=== PATIENT | male | born 1960 | race Caucasian/White ===

== ENCOUNTER 2016-06-21 11:56 | Emergency (ER) | payer OTHER, BC ==
[2016-06-21 12:40] LABS: BASO # 0.1 K/mm3 (0.0-0.2); BASO % 0.9 % (0.0-1.0); EOS # 0.1 K/mm3 (0.0-0.50); EOS % 0.9 % (0.0-3.0); LARGE UNSTAINED CELL # 0.2 K/mm3 (0.0-0.4); LYMPH # 1.6 K/mm3 (1.5-4.5); LYMPH % 20.8 % (24.0-44.0); MEAN CORPUSCULAR HGB CONC 34.9 g/dl (32.0-36.5); MEAN CORPUSCULAR VOLUME 85.9 fl (80.0-96.0); MONO # 0.5 K/mm3 (0.0-0.8); MONO % 5.9 % (0.0-5.0); NEUTROPHILS # 5.4 K/mm3 (1.8-7.7); NEUTROPHILS % 69.5 % (36.0-66.0); PLATELET COUNT, AUTOMATED 237 k/mm3 (150-450); RED CELL DISTRIBUTION WIDTH 12.2 % (11.5-14.5); WHITE BLOOD COUNT 7.8 K/mm3 (4.0-10.0)
[2016-06-21 12:55] LABS: ANION GAP 8 MEQ/L (8-16); BLOOD UREA NITROGEN 14 MG/DL (7-18); CALCIUM LEVEL 9.2 MG/DL (8.5-10.1); CARBON DIOXIDE LEVEL 28 MEQ/L (21-32); CHLORIDE LEVEL 103 MEQ/L (98-107); CREATININE FOR GFR 1.05 MG/DL (0.70-1.30); GLOMERULAR FILTRATION RATE > 60.0 (>56); GLUCOSE, FASTING 94 MG/DL (70-105); SODIUM LEVEL 139 MEQ/L (136-145)
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
--- NOTE | 2016-06-21 14:49 | EDDOCDS ---
Physician Documentation [facility] Name: Pb Denton Age: 56 yrs Sex: Male : 1960 Arrival Date: 06/21/2016 Time: 11:56 Bed 5 Private MD: NO PRIMARY PHYSICIAN, . Disposition: 06/21/16 14:32 Discharged to Home/Self Care. Impression: Headache. - Condition is Stable. - Medication Reconciliation, Local Pharmacy Hours form. - Follow up: [facility]; When: Call to arrange an appointment; Reason: Recheck today's complaints. Follow up: Orthopaedics, [facility]; When: As previously arranged; Reason: Further diagnostic work-up, Recheck today's complaints. Follow up: Monster George MD; When: Call to arrange an appointment; Reason: Recheck today's complaints. - Problem is new. - Symptoms are unchanged. - Notes: You were evaluated in the emergency department for a headache. An x-ray of your head and chest did not reveal any acute abnormalities. Your laboratory results were negative. Take Tylenol and Ibuprofen as needed for your headache. Schedule an appointment withthe E clinicat your soonest convenience to follow-up on today's complaints. Also schedule an appointment with Dr. George (a neurologist) to further discuss today's complaints. Continue care with Dr. Singh (an orthopedist). Historical: - Allergies: no known allergies; - Home Meds: 1. metformin 850 mg oral tab 1 tab daily 2. Lisinopril Unknown Oral 3. Atenolol Unknown Oral Unknown once daily 4. omeprazole 40 mg Oral cpDR 1 cap once daily 5. Hydrochlorothiazide Unknown Oral Unknown once daily 6. aspirin 81 mg Oral tab 1 tab once daily 7. Simvastatin Unknown Oral Unknown once daily - PMHx: Hypercholesterolemia; Hypertension; GERD; Diabetes - NIDDM: controlled; - PSHx: Appendectomy; Tonsillectomy; Adenoidectomy; left knee surgery; - Social history: Smoking status: Chewing Tobacco No barriers to communication noted, The patient speaks fluent Yi, Speaks appropriately for age. - Family history: Not pertinent. - : The pt / caregiver states he / she is not on anticoagulants. Home medication list is obtained from the patient. - Exposure Risk Screening:: None identified. Vital Signs: 06/21 11:58 BP 156 / 87; Pulse 61; Resp 20; Temp 98.1(O); Pulse Ox 96% on R/A; Weight 136.08 kg / elp 300.01 lbs (R); Height 6 ft. 0 in. (182.88 cm) (R); Pain 4/10; 14:36 BP 146 / 83 (auto/); dsf 14:38 Pulse 56 MON; Resp 20; Temp 98.4(O); Pulse Ox 95% on R/A; Pain 4/10; dsf 11:58 Body Mass Index 40.69 (136.08 kg, 182.88 cm) elp Carlos Coma Score: 12:06 Eye Response: spontaneous(4). Verbal Response: oriented(5). Motor Response: obeys dsf commands(6). Total: 15. MDM: 12:05 IV Saline Lock ordered. br1 12:05 CT Head Without Contrast Ordered. EDMS 12:05 CT Chest Without Contrast Ordered. EDMS 12:06 CBC with Diff Ordered. EDMS 12:07 BMP Ordered. EDMS 13:31 BMP Reviewed. jo4 13:32 CBC with Diff Reviewed. jo4 13:32 CT Head Without Contrast Reviewed. jo4 13:33 CT Chest Without Contrast Reviewed. jo4 13:58 Financial registration complete. 14:49 [facility] Payment Agreement was scanned into [employer] and attached to record. Signatures: Dispatcher [employer] Jarad Ward, Gildardo Reg Silviano Mitchell MD MD br1 Yue Omalley,JOCELYNE RN dsf Bridgette Miles DO DO jo4 The chart was reviewed and I authenticate all verbal orders and agree with the evaluation and treatment provided.Attachments: 14:49 [facility] Payment Agreement lg LEVAR
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
--- NOTE | 2016-06-23 15:50 | EDDOCDS ---
Physician Documentation [facility] Name: Pb Denton Age: 56 yrs Sex: Male : 1960 Arrival Date: 06/21/2016 Time: 11:56 Bed 5 Private MD: NO PRIMARY PHYSICIAN, . Disposition: 06/21/16 14:32 Discharged to Home/Self Care. Impression: Headache. - Condition is Stable. - Medication Reconciliation, Local Pharmacy Hours form. - Follow up: [facility]; When: Call to arrange an appointment; Reason: Recheck today's complaints. Follow up: Orthopaedics, [facility]; When: As previously arranged; Reason: Further diagnostic work-up, Recheck today's complaints. Follow up: Monster George MD; When: Call to arrange an appointment; Reason: Recheck today's complaints. - Problem is new. - Symptoms are unchanged. - Notes: You were evaluated in the emergency department for a headache. An x-ray of your head and chest did not reveal any acute abnormalities. Your laboratory results were negative. Take Tylenol and Ibuprofen as needed for your headache. Schedule an appointment withthe E clinicat your soonest convenience to follow-up on today's complaints. Also schedule an appointment with Dr. George (a neurologist) to further discuss today's complaints. Continue care with Dr. Singh (an orthopedist). Historical: - Allergies: no known allergies; - Home Meds: 1. metformin 850 mg oral tab 1 tab daily 2. Lisinopril Unknown Oral 3. Atenolol Unknown Oral Unknown once daily 4. omeprazole 40 mg Oral cpDR 1 cap once daily 5. Hydrochlorothiazide Unknown Oral Unknown once daily 6. aspirin 81 mg Oral tab 1 tab once daily 7. Simvastatin Unknown Oral Unknown once daily - PMHx: Hypercholesterolemia; Hypertension; GERD; Diabetes - NIDDM: controlled; - PSHx: Appendectomy; Tonsillectomy; Adenoidectomy; left knee surgery; - Social history: Smoking status: Chewing Tobacco No barriers to communication noted, The patient speaks fluent Tajik, Speaks appropriately for age. - Family history: Not pertinent. - : The pt / caregiver states he / she is not on anticoagulants. Home medication list is obtained from the patient. - Exposure Risk Screening:: None identified. Vital Signs: 06/21 11:58 BP 156 / 87; Pulse 61; Resp 20; Temp 98.1(O); Pulse Ox 96% on R/A; Weight 136.08 kg / elp 300.01 lbs (R); Height 6 ft. 0 in. (182.88 cm) (R); Pain 4/10; 14:36 BP 146 / 83 (auto/); dsf 14:38 Pulse 56 MON; Resp 20; Temp 98.4(O); Pulse Ox 95% on R/A; Pain 4/10; dsf 11:58 Body Mass Index 40.69 (136.08 kg, 182.88 cm) elp [place] Coma Score: 12:06 Eye Response: spontaneous(4). Verbal Response: oriented(5). Motor Response: obeys dsf commands(6). Total: 15. MDM: 12:05 IV Saline Lock ordered. br1 12:05 CT Head Without Contrast Ordered. EDMS 12:05 CT Chest Without Contrast Ordered. EDMS 12:06 CBC with Diff Ordered. EDMS 12:07 BMP Ordered. EDMS 13:31 BMP Reviewed. jo4 13:32 CBC with Diff Reviewed. jo4 13:32 CT Head Without Contrast Reviewed. jo4 13:33 CT Chest Without Contrast Reviewed. jo4 13:58 Financial registration complete. lg 14:49 [facility] Payment Agreement was scanned into [employer] and attached to record. lg 16:01 T-Sheet-- Draft Copy was scanned into [employer] and attached to record. klr Signatures: Dispatcher [employer] EDJarad Farmer, Reg Reg Silviano Mitchell MD MD br1 Yue Omalley RN RN dsf Bridgette Miles DO DO jo4 Redder, Kathie klr The chart was reviewed and I authenticate all verbal orders and agree with the evaluation and treatment provided.Attachments: 14:49 [facility] Payment Agreement lg 16:01 T-Sheet-- Draft Copy klr Chart Complete MTDD
--- NOTE | 2016-06-23 15:50 | EDDOCDS ---
Physician Documentation [facility] Name: Pb Denton Age: 56 yrs Sex: Male : 1960 Arrival Date: 06/21/2016 Time: 11:56 Bed 5 Private MD: NO PRIMARY PHYSICIAN, . Disposition: 06/21/16 14:32 Discharged to Home/Self Care. Impression: Headache. - Condition is Stable. - Medication Reconciliation, Local Pharmacy Hours form. - Follow up: [facility]; When: Call to arrange an appointment; Reason: Recheck today's complaints. Follow up: Orthopaedics, [facility]; When: As previously arranged; Reason: Further diagnostic work-up, Recheck today's complaints. Follow up: Monster George MD; When: Call to arrange an appointment; Reason: Recheck today's complaints. - Problem is new. - Symptoms are unchanged. - Notes: You were evaluated in the emergency department for a headache. An x-ray of your head and chest did not reveal any acute abnormalities. Your laboratory results were negative. Take Tylenol and Ibuprofen as needed for your headache. Schedule an appointment withthe E clinicat your soonest convenience to follow-up on today's complaints. Also schedule an appointment with Dr. George (a neurologist) to further discuss today's complaints. Continue care with Dr. Singh (an orthopedist). Historical: - Allergies: no known allergies; - Home Meds: 1. metformin 850 mg oral tab 1 tab daily 2. Lisinopril Unknown Oral 3. Atenolol Unknown Oral Unknown once daily 4. omeprazole 40 mg Oral cpDR 1 cap once daily 5. Hydrochlorothiazide Unknown Oral Unknown once daily 6. aspirin 81 mg Oral tab 1 tab once daily 7. Simvastatin Unknown Oral Unknown once daily - PMHx: Hypercholesterolemia; Hypertension; GERD; Diabetes - NIDDM: controlled; - PSHx: Appendectomy; Tonsillectomy; Adenoidectomy; left knee surgery; - Social history: Smoking status: Chewing Tobacco No barriers to communication noted, The patient speaks fluent Turkish, Speaks appropriately for age. - Family history: Not pertinent. - : The pt / caregiver states he / she is not on anticoagulants. Home medication list is obtained from the patient. - Exposure Risk Screening:: None identified. Vital Signs: 06/21 11:58 BP 156 / 87; Pulse 61; Resp 20; Temp 98.1(O); Pulse Ox 96% on R/A; Weight 136.08 kg / elp 300.01 lbs (R); Height 6 ft. 0 in. (182.88 cm) (R); Pain 4/10; 14:36 BP 146 / 83 (auto/); dsf 14:38 Pulse 56 MON; Resp 20; Temp 98.4(O); Pulse Ox 95% on R/A; Pain 4/10; dsf 11:58 Body Mass Index 40.69 (136.08 kg, 182.88 cm) elp [place] Coma Score: 12:06 Eye Response: spontaneous(4). Verbal Response: oriented(5). Motor Response: obeys dsf commands(6). Total: 15. MDM: 12:05 IV Saline Lock ordered. br1 12:05 CT Head Without Contrast Ordered. EDMS 12:05 CT Chest Without Contrast Ordered. EDMS 12:06 CBC with Diff Ordered. EDMS 12:07 BMP Ordered. EDMS 13:31 BMP Reviewed. jo4 13:32 CBC with Diff Reviewed. jo4 13:32 CT Head Without Contrast Reviewed. jo4 13:33 CT Chest Without Contrast Reviewed. jo4 13:58 Financial registration complete. lg 14:49 [facility] Payment Agreement was scanned into [employer] and attached to record. lg 16:01 T-Sheet-- Draft Copy was scanned into [employer] and attached to record. klr Signatures: Dispatcher [employer] EDJarad Farmer, Reg Reg Silviano Mitchell MD MD br1 Yue Omalley RN RN dsf Bridgette Miles DO DO jo4 Redder, Kathie klr The chart was reviewed and I authenticate all verbal orders and agree with the evaluation and treatment provided.Attachments: 14:49 [facility] Payment Agreement lg 16:01 T-Sheet-- Draft Copy klr Chart Complete MTDD
== END 2016-06-21 14:49 | disposition home or self-care (01) ==
LOC: M ED 11:56
DX: R51 Headache (principal); E78.00 Pure hypercholesterolemia, unspecified; I10 Essential (primary) hypertension; K21.9 Gastro-esophageal reflux disease without esophagitis; E11.9 Type 2 diabetes mellitus without complications; F17.220 Nicotine dependence, chewing tobacco, uncomplicated; Z79.84 Long term (current) use of oral hypoglycemic drugs; Z79.82 Long term (current) use of aspirin; Z79.899 Other long term (current) drug therapy

== ENCOUNTER → 2016-07-01 | Outpatient (CLI) | payer OTHER, BC ==
--- NOTE | 2016-07-01 14:44 | REP ---
Left shoulder MRI: The study is technically difficult because of patient body habitus and inability to use the usual shoulder coil. The study is performed with proton density and T2-weighted dialysis in sagittal, axial and coronal projections. The acromioclavicular joint is unremarkable. The rotator cuff tendons are unremarkable. There is no fluid in the subacromial bursa. There is no evidence of marrow edema. There is slight spurring of the humeral head compatible with osteoarthritis. There is no gross evidence of labral tear or displacement. There is no displacement of the biceps long head tendon. There is a 2.2 cm cyst along the anterior margin of the subscapularis tendon, compatible with ganglion. Impression: 2.2 cm ganglion along the anterior margin of the subscapularis tendon. Otherwise, negative left shoulder MRI. The study is technically difficult as a is performed without the usual shoulder coil because of patient body habitus. Signed by Darrian Gill MD 07/01/2016 02:35 P
== END ==
LOC: M RAD 12:49
PROVIDERS: ATTEND Orthopaedic Surgery
DX: M25.512 Pain in left shoulder (principal); M67.412 Ganglion, left shoulder

== ENCOUNTER → 2016-11-19 | Outpatient (CLI) | payer OTHER, BC | LOC: M WUC 08:51 | PROVIDERS: ATTEND Nurse Practitioner Family | DX: E11.9 Type 2 diabetes mellitus without complications (principal); E78.5 Hyperlipidemia, unspecified; Z12.5 Encounter for screening for malignant neoplasm of prostate ==

== ENCOUNTER → 2016-11-20 | Outpatient (REF) | payer OTHER | LOC: M LAB REF 19:06 | PROVIDERS: ATTEND Nurse Practitioner Family | DX: Z12.5 Encounter for screening for malignant neoplasm of prostate (principal); E78.5 Hyperlipidemia, unspecified; E11.9 Type 2 diabetes mellitus without complications ==

== ENCOUNTER → 2017-01-15 | Outpatient (REF) | payer OTHER ==
[2017-01-18 00:06] LABS: Lyme Disease IgG Ab 18 kDa Ban Present (.); Lyme Disease IgG Ab 23 kDa Ban Absent (.); Lyme Disease IgG Ab 28 kDa Ban Absent (.); Lyme Disease IgG Ab 30 kDa Ban Absent (.); Lyme Disease IgG Ab 39 kDa Ban Present (.); Lyme Disease IgG Ab 41 kDa Ban Present (.); Lyme Disease IgG Ab 45 kDa Ban Present (.); Lyme Disease IgG Ab 58 kDa Ban Present (.); Lyme Disease IgG Ab 66 kDa Ban Absent (.); Lyme Disease IgG Ab 93 kDa Ban Absent (.); Lyme Disease IgG West Blot Int Positive (.); Lyme Disease IgG/IgM Antibodie 1.62 ISR (0.00-0.90); Lyme Disease IgM Ab 23 kDa Ban Present (.); Lyme Disease IgM Ab 39 kDa Ban Absent (.); Lyme Disease IgM Ab 41 kDa Ban Present (.); Lyme Disease IgM West Blot Int Positive (.)
== END ==
LOC: M LAB REF 14:09
PROVIDERS: ATTEND Physician Assistant
DX: L30.9 Dermatitis, unspecified (principal)

== ENCOUNTER → 2017-06-26 | Outpatient (CLI) | payer BC, OTHER | LOC: M WUC 13:36 | DX: R50.9 Fever, unspecified (principal); R05 Cough | CPT/HCPCS: 71046 ==

== ENCOUNTER → 2017-06-26 | Outpatient (REF) | payer BC, OTHER ==
[2017-06-26 19:33] LABS: HEMATOCRIT 41.4 % (42.0-52.0); HEMOGLOBIN 13.7 g/dl (14.0-18.0); MEAN CORPUSCULAR HEMOGLOBIN 29.8 pg (27.0-33.0); MEAN CORPUSCULAR HGB CONC 33.1 g/dl (32.0-36.5); PLATELET COUNT, AUTOMATED 193 10^3/uL (150-450); WHITE BLOOD COUNT 15.9 10^3/uL (4.0-10.0)
[2017-06-26 19:42] LABS: ADD MANUAL DIFFER YES; DIFF SLIDE NUMBER 348; POS COUNT POS FLAG; POSITIVE MORPH POS FLAG
[2017-06-26 20:28] LABS: ATYPICAL LYMPH 1 % (0-5); BANDS 6 % (< 11); BASOPHILS 1 % (0-4); LYMPHOCYTES 4 % (16-52); MONOCYTES 6 % (0-8)
[2017-06-26 20:29] LABS: PLATELET CLUMPS SMALL AMT; PLATELET ESTIMATE NORMAL (NORMAL)
[2017-06-26 21:04] LABS: NEUTROPHILS 82 % (35-75)
== END ==
LOC: M LAB REF 18:20
DX: R05 Cough (principal); R50.9 Fever, unspecified
CPT/HCPCS: 85025

== ENCOUNTER → 2018-08-07 | Outpatient (REF) | payer OTHER ==
[2018-08-07 10:04] LABS: ALT/SGPT 71 U/L (12-78); BILIRUBIN,TOTAL 0.5 MG/DL (0.2-1.0); BLOOD UREA NITROGEN 20 MG/DL (7-18); CALCIUM LEVEL 9.1 MG/DL (8.5-10.1); CARBON DIOXIDE LEVEL 27 MEQ/L (21-32); CHLORIDE LEVEL 103 MEQ/L (98-107); CHOLESTEROL LEVEL 229 MG/DL (<200); CHOLESTEROL RISK RATIO 6.542 (<5); CREATININE FOR GFR 0.97 MG/DL (0.70-1.30); GLOMERULAR FILTRATION RATE > 60.0 (>56); GLUCOSE, FASTING 114 MG/DL (70-100); HDL CHOLESTEROL 35 MG/DL (>40); LDL CHOLESTEROL 117 MG/DL (<100); NON-HDL-C 194 MG/DL; POTASSIUM SERUM 3.9 MEQ/L (3.5-5.1); SODIUM LEVEL 137 MEQ/L (136-145); TOTAL PROTEIN 7.1 GM/DL (6.4-8.2); TRIGLYCERIDES LEVEL 385 MG/DL (<150)
[2018-08-07 10:41] LABS: URIC ACID 6.7 MG/DL (3.5-7.2)
== END ==
LOC: M LAB REF 09:29
PROVIDERS: ATTEND Nurse Practitioner Family
DX: I10 Essential (primary) hypertension (principal); E78.5 Hyperlipidemia, unspecified; M54.5 Low back pain; M10.372 Gout due to renal impairment, left ankle and foot; E11.9 Type 2 diabetes mellitus without complications

== ENCOUNTER → 2019-05-23 | Outpatient (REF) | payer OTHER | LOC: M SFHCADAM 17:08 | PROVIDERS: ATTEND Family Medicine | DX: E78.49 Other hyperlipidemia (principal); R73.03 Prediabetes; K22.70 Barrett's esophagus without dysplasia; G47.33 Obstructive sleep apnea (adult) (pediatric); I11.9 Hypertensive heart disease without heart failure; Z12.5 Encounter for screening for malignant neoplasm of prostate; R53.83 Other fatigue ==

== ENCOUNTER → 2019-05-27 | Outpatient (REF) | payer MEDICARE, OTHER ==
[2019-05-27 11:36] LABS: HEMATOCRIT 48.8 % (42.0-52.0); HEMOGLOBIN 16.1 g/dl (13.5-17.5); MEAN CORPUSCULAR HEMOGLOBIN 29.3 pg (27.0-33.0); MEAN CORPUSCULAR VOLUME 88.7 fl (80.0-96.0); PLATELET COUNT, AUTOMATED 220 10^3/uL (150-450); WHITE BLOOD COUNT 8.7 10^3/uL (4.0-10.0)
[2019-05-27 11:47] LABS: ALBUMIN 3.9 GM/DL (3.2-5.2); ALT/SGPT 64 U/L (12-78); BILIRUBIN,TOTAL 0.7 MG/DL (0.2-1.0); BLOOD UREA NITROGEN 17 MG/DL (7-18); CALCIUM LEVEL 9.3 MG/DL (8.5-10.1); CARBON DIOXIDE LEVEL 27 MEQ/L (21-32); CHLORIDE LEVEL 102 MEQ/L (98-107); CHOLESTEROL LEVEL 219 MG/DL (<200); CHOLESTEROL RISK RATIO 5.615 (<5); CREATININE FOR GFR 1.01 MG/DL (0.70-1.30); FREE T4 0.92 NG/DL (0.76-1.46); GLOMERULAR FILTRATION RATE > 60.0 (>56); GLUCOSE, FASTING 115 MG/DL (70-100); HDL CHOLESTEROL 39 MG/DL (>40); LDL CHOLESTEROL 138 MG/DL (<100); NON-HDL-C 180 MG/DL; POTASSIUM SERUM 3.8 MEQ/L (3.5-5.1); SODIUM LEVEL 139 MEQ/L (136-145); TOTAL PROTEIN 7.3 GM/DL (6.4-8.2); TRIGLYCERIDES LEVEL 210 MG/DL (<150); VITAMIN B12 LEVEL 449 PG/ML
[2019-05-27 11:51] LABS: FOLATE 11.1 NG/ML
[2019-05-27 12:14] LABS: HEMOGLOBIN A1c 6.2 %
== END ==
LOC: M SFHCADAM 10:29
PROVIDERS: ATTEND Family Medicine
DX: R73.03 Prediabetes (principal); Z12.5 Encounter for screening for malignant neoplasm of prostate; I11.9 Hypertensive heart disease without heart failure; K22.70 Barrett's esophagus without dysplasia; G47.33 Obstructive sleep apnea (adult) (pediatric)
CPT/HCPCS: 36415; 80053; 80061; 82607; 82746; 83036; 84439; 84443; 85027; G0103

== ENCOUNTER → 2019-05-30 | Outpatient (CLI) | payer MEDICARE, OTHER ==
--- NOTE | 2019-05-30 13:49 | REP ---
CHEST, TWO VIEWS: Two views of the chest are performed and compared to prior studies, most recently 06/26/2017. There is no acute infiltrate. There is minor bibasilar fibroatelectatic change. Heart is normal in size. Mediastinal silhouette is unremarkable and unchanged. There are degenerative changes of the spine. IMPRESSION: No evidence of acute pulmonary disease. Electronically Signed by Darrian Pack MD 05/30/2019 05:44 P
== END ==
LOC: M WUC 09:41
PROVIDERS: ATTEND Nurse Practitioner Family
DX: R06.02 Shortness of breath (principal)

== ENCOUNTER → 2019-06-25 | Outpatient (CLI) | payer MEDICARE, OTHER ==
--- NOTE | 2019-06-25 12:26 | REP ---
Lumbar spine three views: Vertebral body heights and alignment are normal. There is degenerative disc disease at every lumbar level. There is no spondylolysis or spondylolisthesis. The pedicles, facets and sacroiliac articulations are unremarkable. Impression: Multilevel degenerative disc disease. Otherwise, negative lumbar spine. Electronically Signed by Darrian Gill MD 06/25/2019 12:17 P
== END ==
LOC: M ADAMS 11:26
PROVIDERS: ATTEND Family Medicine
DX: M51.36 Other intervertebral disc degeneration, lumbar region (principal); M54.5 Low back pain
CPT/HCPCS: 72100; G0463

== ENCOUNTER → 2019-07-05 | Outpatient (CLI) | payer MEDICARE, BC, OTHER ==
--- NOTE | 2019-07-05 09:08 | REPVR ---
PROCEDURE INFORMATION: Exam: MR Lumbar Spine Without Contrast. Exam date and time: 07/05/2019 7:44 AM Age: 59 years old Clinical indication: Low back pain; Additional info: Lbp TECHNIQUE: Imaging protocol: Multiplanar magnetic resonance images of the lumbar spine without intravenous contrast. COMPARISON: DX SPINE LUMBOSACRAL PARTIAL 06/25/2019 11:40 AM FINDINGS: Vertebrae: There is 3 mm of grade 1 retrolisthesis of L5 with respect to S1. Normal vertebral body alignment is otherwise preserved. Vertebral body heights are within normal limits. Spinal cord: The conus medullaris terminates at T12/L1. L1-L2: There is shallow disc bulging. There is mild facet and ligamentous hypertrophy. The spinal canal and neural foramina are patent. L2-L3: There is shallow disc bulging. There is mild facet hypertrophy. The spinal canal and neural foramina are patent. L3-L4: There is shallow disc bulging. There is mild facet and ligamentous hypertrophy. There is [id number] bilateral neural foraminal narrowing. L4-L5: There is a 8 mm synovial cyst arising from the anterior aspect of the left facet joint. This exerts mass effect upon the left thecal sac, effacing the left lateral recess. There is moderate facet and ligamentous hypertrophy. There is mild bilateral neural foraminal narrowing. L5-S1: There is diffuse disc bulging/uncovering related to listhesis. There is moderate facet hypertrophy. Mild to moderate right and moderate left neural foraminal narrowing. Soft tissues: Unremarkable. IMPRESSION: 1. Degenerative disc disease and spondylosis as described. 2. 8 mm synovial cyst arises from the anterior aspect of the left L4/5 facet joint. This effaces the left lateral recess, with potential compromise of the left L5 nerve root. Electronically signed by: Andra Talley On 07/05/2019 09:08:01 AM
== END ==
LOC: M RAD 07:43
PROVIDERS: ATTEND Family Medicine
DX: M54.5 Low back pain (principal)

== ENCOUNTER → 2021-03-29 | Outpatient (CLI) | payer MEDICARE, BC, OTHER ==
[2021-03-29 11:27] LABS: HEMATOCRIT 45.1 % (42.0-52.0); HEMOGLOBIN 15.3 g/dl (13.5-17.5); MEAN CORPUSCULAR HEMOGLOBIN 30.1 pg (27.0-33.0); MEAN CORPUSCULAR HGB CONC 33.9 g/dl (32.0-36.5); MEAN CORPUSCULAR VOLUME 88.6 fl (80.0-96.0); PLATELET COUNT, AUTOMATED 219 10^3/uL (150-450); RED BLOOD COUNT 5.09 10^6/uL (4.30-6.10); WHITE BLOOD COUNT 6.8 10^3/uL (4.0-10.0)
[2021-03-29 11:31] LABS: HEMOGLOBIN A1c 5.8 %
[2021-03-29 11:58] LABS: ALBUMIN 3.8 GM/DL (3.2-5.2); ALT/SGPT 41 U/L (12-78); BILIRUBIN,TOTAL 0.9 MG/DL (0.2-1.0); BLOOD UREA NITROGEN 15 MG/DL (7-18); CALCIUM LEVEL 9.3 MG/DL (8.8-10.2); CARBON DIOXIDE LEVEL 27 MEQ/L (21-32); CHLORIDE LEVEL 103 MEQ/L (98-107); CHOLESTEROL LEVEL 180 MG/DL (<200); CREATININE FOR GFR 0.97 MG/DL (0.70-1.30); FREE T4 0.97 NG/DL (0.76-1.46); GLOMERULAR FILTRATION RATE > 60.0 (>49); GLUCOSE, FASTING 126 MG/DL (70-100); HDL CHOLESTEROL 45 MG/DL (>40); LDL CHOLESTEROL 95 MG/DL (<100); NON-HDL-C 135 MG/DL; POTASSIUM SERUM 3.7 MEQ/L (3.5-5.1); SODIUM LEVEL 138 MEQ/L (136-145); TOTAL PROTEIN 7.4 GM/DL (6.4-8.2); TRIGLYCERIDES LEVEL 198 MG/DL (<150)
== END ==
LOC: M WUC 08:56
PROVIDERS: ATTEND Family Medicine
DX: E78.49 Other hyperlipidemia (principal); R73.03 Prediabetes; K22.70 Barrett's esophagus without dysplasia; Z12.5 Encounter for screening for malignant neoplasm of prostate
CPT/HCPCS: 36415; 80053; 80061; 83036; 84439; 84443; 85027; G0103

== ENCOUNTER → 2021-12-08 | Outpatient (CLI) | payer MEDICARE, BC, OTHER ==
[~2021-12-08] MED LIST: ASPI81TA26 PO; ATEN50TA2 PO; ATOR1TAB21 PO; GNP250TA9 PO; HYDR-3490 PO; HYDR50TAB; LISI40TA4 PO; MAGN250T22 PO; OMEP40CA4 PO; RA T500C2 PO; SILD100T PO; VITA-243 PO; ZINC1TAB2 PO
== END ==
LOC: M LABSMTC 10:00
PROVIDERS: ATTEND Anesthesiology
DX: Z01.818 Encounter for other preprocedural examination (principal); Z11.52 Encounter for screening for COVID-19

== ENCOUNTER 2021-12-13 06:39 | Day surgery (SDC) | payer MEDICARE, BC, OTHER ==
[~2021-12-13] VITALS: Ht 180.3 cm; Wt 155.6 kg
[~2021-12-13 06:39] MED LIST changes: +NS 1,000 ML IV ONE
[2021-12-13] MEDS ORDERED: propofoL 500 MG/50 ML VIAL As Ordered ONE (07:14)
[2021-12-13] MEDS ORDERED: fentaNYL 100 MCG/2 ML INJECTION As Ordered ONE (07:15)
[2021-12-13] MEDS ORDERED: LIDOCAINE 2% 100MG/5ML SDV (FOR ANES.) As Ordered ONE (07:17)
[2021-12-13] MEDS ORDERED: GLYCOPYRROLATE INJ 0.2 MG/ML 2 ML VIAL As Ordered ONE (07:18)
[2021-12-13] MEDS ORDERED: propofoL 200 MG/20 ML VIAL As Ordered ONE (07:57)
[2021-12-13] MEDS ORDERED: ONDANSETRON 4MG 2ML VIAL As Ordered ONE (08:10)
[2021-12-13 08:42] VITALS: BP 142/89
== END 2021-12-13 08:44 | disposition home or self-care (01) ==
LOC: M OPP 06:39
PROVIDERS: ATTEND Internal Medicine Gastroenterology
DX: Z12.11 Encounter for screening for malignant neoplasm of colon (principal); D12.2 Benign neoplasm of ascending colon; K63.5 Polyp of colon; K57.30 Diverticulosis of large intestine without perforation or abscess without bleeding; K64.8 Other hemorrhoids; K22.70 Barrett's esophagus without dysplasia; I10 Essential (primary) hypertension; Z79.02 Long term (current) use of antithrombotics/antiplatelets; Z79.82 Long term (current) use of aspirin; Z79.899 Other long term (current) drug therapy; Z80.1 Family history of malignant neoplasm of trachea, bronchus and lung; Z80.42 Family history of malignant neoplasm of prostate
CPT/HCPCS: 43239; 45385; 88305; J2405; J3010

== ENCOUNTER → 2022-03-04 | Outpatient (CLI) | payer MEDICARE, BC, OTHER ==
[~2022-03-04] MED LIST changes: -NS 1,000 ML IV ONE
== END ==
LOC: M ADAMS 09:37
PROVIDERS: ATTEND Family Medicine
DX: M54.6 Pain in thoracic spine (principal)

== ENCOUNTER → 2022-05-24 | Outpatient (REF) | payer MEDICARE, OTHER ==
[2022-05-24 16:29] LABS: HEMATOCRIT 50.7 % (42.0-52.0); HEMOGLOBIN 16.7 g/dl (13.5-17.5); MEAN CORPUSCULAR HEMOGLOBIN 28.9 pg (27.0-33.0); MEAN CORPUSCULAR HGB CONC 32.9 g/dl (32.0-36.5); MEAN CORPUSCULAR VOLUME 87.7 fl (80.0-96.0); PLATELET COUNT, AUTOMATED 334 10^3/uL (150-450); RED BLOOD COUNT 5.78 10^6/uL (4.30-6.10); WHITE BLOOD COUNT 9.7 10^3/uL (4.0-10.0)
[2022-05-24 16:50] LABS: ALBUMIN 3.9 G/DL (3.2-5.2); ALKALINE PHOSPHATASE 81 U/L (46-116); ALT/SGPT 61 U/L (7.0-40); AST/SGOT 52 U/L (<34); BILIRUBIN,TOTAL 0.7 MG/DL (0.3-1.2); BLOOD UREA NITROGEN 27 MG/DL (9-23); CALCIUM LEVEL 9.4 MG/DL (8.3-10.6); CARBON DIOXIDE LEVEL 23 MMOL/L (20-31); CHLORIDE LEVEL 99 MMOL/L (98-107); CHOLESTEROL LEVEL 155 MG/DL (<200); CHOLESTEROL RISK RATIO 4.15 (<5); CREATININE FOR GFR 0.85 MG/DL (0.70-1.30); FREE T4 1.18 NG/DL (0.89-1.76); GLOMERULAR FILTRATION RATE > 60.0 (>49); GLUCOSE, FASTING 127 MG/DL (74-106); HDL CHOLESTEROL 37.3 MG/DL (>40); LDL CHOLESTEROL 80.5 MG/DL (<100); NON-HDL-C 118 MG/DL; POTASSIUM SERUM 3.7 MMOL/L (3.5-5.1); SODIUM LEVEL 138 MMOL/L (136-145); TOTAL PROTEIN 7.4 G/DL (5.7-8.2); TRIGLYCERIDES LEVEL 186 MG/DL (<150)
[2022-05-24 16:52] LABS: THYROID STIMULATING HORMONE 1.201 uIU/ML (0.55-4.78)
[2022-05-24 16:54] LABS: HEMOGLOBIN A1c 6.8 % (4.0-6.0)
== END ==
LOC: M SFHCADAM 13:40
PROVIDERS: ATTEND Family Medicine
DX: J20.9 Acute bronchitis, unspecified (principal); G43.009 Migraine without aura, not intractable, without status migrainosus; R73.03 Prediabetes; E78.49 Other hyperlipidemia; Z12.5 Encounter for screening for malignant neoplasm of prostate
CPT/HCPCS: 80053; 80061; 83036; 84439; 84443; 85027; G0103

== ENCOUNTER → 2022-05-24 | Outpatient (CLI) | payer MEDICARE, OTHER | LOC: M ADAMS 13:52 | PROVIDERS: ATTEND Family Medicine | DX: J20.9 Acute bronchitis, unspecified (principal) ==

== ENCOUNTER → 2022-06-29 | Outpatient (CLI) | payer MEDICARE, BC, OTHER ==
[~2022-06-29] MED LIST changes: +ISOVUE-370 76% 100ML VIAL As Ordered ONE
== END ==
LOC: M RAD 07:32
PROVIDERS: ATTEND Family Medicine
DX: R05.3 Chronic cough (principal); N28.1 Cyst of kidney, acquired
CPT/HCPCS: 71275; Q9967

== ENCOUNTER → 2022-11-24 | Outpatient (REF) | payer MEDICARE, OTHER ==
[~2022-11-24] MED LIST changes: -ISOVUE-370 76% 100ML VIAL As Ordered ONE
[2022-11-24 15:12] LABS: CREATININE, URINE 58.1 MG/DL; MAU/CREAT RATIO 5.1 MCG/MG (0.0-30.0)
== END ==
LOC: M SFHCADAM 09:52
PROVIDERS: ATTEND Family Medicine
DX: E11.9 Type 2 diabetes mellitus without complications (principal); K22.70 Barrett's esophagus without dysplasia; I25.10 Atherosclerotic heart disease of native coronary artery without angina pectoris

== ENCOUNTER → 2022-11-26 | Outpatient (CLI) | payer MEDICARE, BC, OTHER ==
[2022-11-26 08:39] LABS: HEMOGLOBIN 15.8 g/dl (13.5-17.5); MEAN CORPUSCULAR HGB CONC 33.6 g/dl (32.0-36.5); MEAN CORPUSCULAR VOLUME 89.4 fl (80.0-96.0); PLATELET COUNT, AUTOMATED 224 10^3/uL (150-450); RED BLOOD COUNT 5.26 10^6/uL (4.30-6.10); WHITE BLOOD COUNT 6.8 10^3/uL (4.0-10.0)
[2022-11-26 08:50] LABS: HEMOGLOBIN A1c 6.5 % (4.0-6.0)
[2022-11-26 09:10] LABS: ALBUMIN 3.9 G/DL (3.2-5.2); ALKALINE PHOSPHATASE 61 U/L (46-116); ALT/SGPT 62 U/L (7.0-40); AST/SGOT 32 U/L (<34); BILIRUBIN,TOTAL 0.5 MG/DL (0.3-1.2); BLOOD UREA NITROGEN 24 MG/DL (9-23); CALCIUM LEVEL 9.4 MG/DL (8.3-10.6); CARBON DIOXIDE LEVEL 28 MMOL/L (20-31); CHLORIDE LEVEL 103 MMOL/L (98-107); CREATININE FOR GFR 0.83 MG/DL (0.70-1.30); GLOMERULAR FILTRATION RATE > 60.0 (>49); GLUCOSE, FASTING 136 MG/DL (74-106); POTASSIUM SERUM 4.2 MMOL/L (3.5-5.1); SODIUM LEVEL 138 MMOL/L (136-145)
== END ==
LOC: M LAB 08:05
PROVIDERS: ATTEND Family Medicine
DX: K22.70 Barrett's esophagus without dysplasia (principal); E11.9 Type 2 diabetes mellitus without complications

== ENCOUNTER → 2022-12-30 | Outpatient (CLI) | payer MEDICARE, BC, OTHER | LOC: M WUC 08:30 | PROVIDERS: ATTEND Nurse Practitioner Family | DX: R05.9 Cough, unspecified (principal); R06.02 Shortness of breath ==

== ENCOUNTER → 2023-06-01 | Outpatient (REF) | payer MEDICARE, BC, OTHER ==
[2023-06-01 14:10] LABS: PSA SCREENING 2.59 NG/ML (< 4.00)
[2023-06-01 14:11] LABS: BLOOD UREA NITROGEN 18 MG/DL (9-23); CALCIUM LEVEL 9.7 MG/DL (8.3-10.6); CARBON DIOXIDE LEVEL 28 MMOL/L (20-31); CHLORIDE LEVEL 103 MMOL/L (98-107); CREATININE FOR GFR 1.04 MG/DL (0.70-1.30); GLOMERULAR FILTRATION RATE > 60.0 (>49); GLUCOSE, FASTING 105 MG/DL (74-106); POTASSIUM SERUM 3.7 MMOL/L (3.5-5.1); SODIUM LEVEL 139 MMOL/L (136-145)
[2023-06-01 14:14] LABS: ALBUMIN 4.1 G/DL (3.2-5.2); ALKALINE PHOSPHATASE 72 U/L (46-116); ALT/SGPT 42 U/L (7.0-40); AST/SGOT 25 U/L (<34); BILIRUBIN,TOTAL 0.8 MG/DL (0.3-1.2); BLOOD UREA NITROGEN 19 MG/DL (9-23); CALCIUM LEVEL 9.8 MG/DL (8.3-10.6); CARBON DIOXIDE LEVEL 28 MMOL/L (20-31); CHLORIDE LEVEL 104 MMOL/L (98-107); CHOLESTEROL LEVEL 161 MG/DL (<200); CHOLESTEROL RISK RATIO 4.54 (<5); CREATININE FOR GFR 1.04 MG/DL (0.70-1.30); GLOMERULAR FILTRATION RATE > 60.0 (>49); GLUCOSE, FASTING 103 MG/DL (74-106); HDL CHOLESTEROL 35.4 MG/DL (>40); NON-HDL-C 125.6 MG/DL; POTASSIUM SERUM 3.7 MMOL/L (3.5-5.1); SODIUM LEVEL 140 MMOL/L (136-145); TOTAL PROTEIN 7.3 G/DL (5.7-8.2); TRIGLYCERIDES LEVEL 148 MG/DL (<150)
[2023-06-01 14:16] LABS: FREE T4 1.01 NG/DL (0.89-1.76); THYROID STIMULATING HORMONE 2.307 uIU/ML (0.55-4.78)
[2023-06-01 14:21] LABS: BASO # 0.1 10^3/uL (0.0-0.2); BASO % 0.8 % (0.0-1.0); EOS # 0.1 10^3/uL (0.0-0.5); EOS % 0.8 % (0.0-3.0); HEMATOCRIT 46.6 % (42.0-52.0); HEMOGLOBIN 15.9 g/dl (13.5-17.5); LYMPH # 1.9 10^3/uL (1.5-5.0); MEAN CORPUSCULAR HEMOGLOBIN 29.9 pg (27.0-33.0); MEAN CORPUSCULAR HGB CONC 34.1 g/dl (32.0-36.5); MEAN CORPUSCULAR VOLUME 87.6 fl (80.0-96.0); MONO # 0.7 10^3/uL (0.0-0.8); MONO % 8.7 % (2.0-8.0); NEUTROPHILS # 5.7 10^3/uL (1.5-8.5); NEUTROPHILS % 67.3 % (36.0-66.0); PLATELET COUNT, AUTOMATED 268 10^3/uL (150-450); RED BLOOD COUNT 5.32 10^6/uL (4.30-6.10); WHITE BLOOD COUNT 8.5 10^3/uL (4.0-10.0)
[2023-06-01 14:39] LABS: HEMOGLOBIN A1c 5.5 % (4.0-6.0)
== END ==
LOC: M SFHCADAM 09:26
PROVIDERS: ATTEND Family Medicine
DX: I11.9 Hypertensive heart disease without heart failure (principal); E11.9 Type 2 diabetes mellitus without complications; Z12.5 Encounter for screening for malignant neoplasm of prostate
CPT/HCPCS: 80048; 80053; 80061; 83036; 84439; 84443; 85025; G0103

== ENCOUNTER → 2023-10-05 | Outpatient (REF) | payer MEDICARE, BC ==
[2023-10-05 19:14] LABS: CREATININE, URINE 179.4 MG/DL; MAU/CREAT RATIO 2.7 MCG/MG (0.0-30.0)
[2023-10-05 19:15] LABS: BLOOD UREA NITROGEN 20 MG/DL (9-23); CALCIUM LEVEL 9.7 MG/DL (8.3-10.6); CARBON DIOXIDE LEVEL 25 MMOL/L (20-31); CHLORIDE LEVEL 104 MMOL/L (98-107); CREATININE FOR GFR 0.95 MG/DL (0.70-1.30); GLOMERULAR FILTRATION RATE > 60.0 (>49); GLUCOSE, FASTING 94 MG/DL (74-106); POTASSIUM SERUM 4.2 MMOL/L (3.5-5.1); SODIUM LEVEL 139 MMOL/L (136-145)
[2023-10-05 19:46] LABS: HEMOGLOBIN A1c 5.5 % (4.0-6.0)
== END ==
LOC: M SFHCADAM 11:28
PROVIDERS: ATTEND Family Medicine
DX: I11.9 Hypertensive heart disease without heart failure (principal); E11.9 Type 2 diabetes mellitus without complications

== ENCOUNTER → 2024-05-07 | Outpatient (REF) | payer MEDICARE, BC ==
[~2024-05-07] MED LIST changes: +SEMA2PEN SQ; +ZINC50TA14 PO
[2024-05-07 13:22] LABS: HEMOGLOBIN 15.8 g/dl (13.5-17.5); MEAN CORPUSCULAR HEMOGLOBIN 30.2 pg (27.0-33.0); MEAN CORPUSCULAR HGB CONC 33.6 g/dl (32.0-36.5); MEAN CORPUSCULAR VOLUME 89.9 fl (80.0-96.0); PLATELET COUNT, AUTOMATED 213 10^3/uL (150-450); RED BLOOD COUNT 5.23 10^6/uL (4.30-6.10); WHITE BLOOD COUNT 7.2 10^3/uL (4.0-10.0)
[2024-05-07 13:27] LABS: ALBUMIN 3.9 G/DL (3.2-5.2); ALKALINE PHOSPHATASE 60 U/L (40-129); ALT/SGPT 27 U/L (7.0-40); AST/SGOT 15 U/L (<34); BILIRUBIN,TOTAL 0.5 MG/DL (0.3-1.2); BLOOD UREA NITROGEN 18 MG/DL (9-23); CARBON DIOXIDE LEVEL 30 MMOL/L (20-31); CHLORIDE LEVEL 104 MMOL/L (98-107); CHOLESTEROL LEVEL 220 MG/DL (<200); CHOLESTEROL RISK RATIO 5.32 (<5); CREATININE FOR GFR 0.91 MG/DL (0.70-1.30); GLOMERULAR FILTRATION RATE > 60.0 (>49); GLUCOSE, FASTING 102 MG/DL (74-106); HDL CHOLESTEROL 41.3 MG/DL (>40); LDL CHOLESTEROL 148.1 MG/DL (<100); NON-HDL-C 178.7 MG/DL; SODIUM LEVEL 141 MMOL/L (136-145); TOTAL PROTEIN 7.1 G/DL (5.7-8.2); TRIGLYCERIDES LEVEL 153 MG/DL (<150)
[2024-05-07 13:39] LABS: HEMOGLOBIN A1c 5.4 % (4.0-6.0)
== END ==
LOC: M SFHCADAM 09:26
PROVIDERS: ATTEND Family Medicine
DX: I11.9 Hypertensive heart disease without heart failure (principal); E11.9 Type 2 diabetes mellitus without complications; I25.10 Atherosclerotic heart disease of native coronary artery without angina pectoris; E78.49 Other hyperlipidemia; K22.70 Barrett's esophagus without dysplasia

== ENCOUNTER → 2024-09-13 | Outpatient (CLI) | payer MEDICARE, BC | LOC: M WUC 08:20 | PROVIDERS: ATTEND Physician Assistant | DX: S60.112A Contusion of left thumb with damage to nail, initial encounter (principal); W18.30XA Fall on same level, unspecified, initial encounter; Y92.009 Unspecified place in unspecified non-institutional (private) residence as the place of occurrence of the external cause ==

== ENCOUNTER → 2025-05-12 | Outpatient (REF) | payer MEDICARE, BC ==
[~2025-05-12] MED LIST changes: +LISI40TA10 PO; -LISI40TA4 PO; -RA T500C2 PO; +TURM500C10 PO
[2025-05-12 13:54] LABS: PLATELET COUNT, AUTOMATED 243 10^3/uL (150-450)
[2025-05-12 13:55] LABS: ALT/SGPT 30 U/L (7.0-40); AST/SGOT 22 U/L (<34); CALCIUM LEVEL 9.6 MG/DL (8.3-10.6); CARBON DIOXIDE LEVEL 27 MMOL/L (20-31); CHLORIDE LEVEL 104 MMOL/L (98-107); CHOLESTEROL LEVEL 210 MG/DL (<200); CHOLESTEROL RISK RATIO 4.59 (<5); CREATININE FOR GFR 0.85 MG/DL (0.70-1.30); GLOMERULAR FILTRATION RATE > 90.0 (>49); LDL CHOLESTEROL 127.5 MG/DL (<100); NON-HDL-C 164.3 MG/DL; POTASSIUM SERUM 4.0 MMOL/L (3.5-5.1); PSA SCREENING 4.42 NG/ML (< 4.00); SODIUM LEVEL 141 MMOL/L (136-145); TRIGLYCERIDES LEVEL 184 MG/DL (<150)
[2025-05-12 14:02] LABS: ESTIMATED AVERAGE GLUCOSE 103.0 MG/DL (60-110)
== END ==
LOC: M SFHCADAM 08:54
PROVIDERS: ATTEND Family Medicine
DX: I11.9 Hypertensive heart disease without heart failure (principal); E11.9 Type 2 diabetes mellitus without complications; Z12.5 Encounter for screening for malignant neoplasm of prostate; E78.49 Other hyperlipidemia
CPT/HCPCS: 80053; 80061; 83036; 85027; G0103